=== PATIENT | female | born 1965 | race Caucasian/White ===

== ENCOUNTER 2023-10-28 12:10 | Outpatient (CLI) | payer OTHER, SELFPAY ==
--- NOTE | ~2023-10-28 | XR_ITS ---
XR lumbar spine min 4V DATE: 10/28/2023 12:46 INDICATION: Low back pain. Spinal stenosis. TECHNIQUE: Standing AP and standing flexion, extension and neutral lateral views COMPARISON: None FINDINGS: There is mild lumbar levoscoliosis. There is mild degenerative disc disease at L2-3 and L3-4. L1-2, L4-5 and L5-S1 interspaces appear relatively well preserved. There is degenerative change at the apophyseal joints with associated grade 1 anterolisthesis at L3-4 and slightly greater grade 1 anterolisthesis at L4-5, slightly improved in extension. The AP pedicle distances may be relatively short as suggested in the clinical history of spinal steno sis. However, CT lumbar spine would be more definitive for assessment of primary spinal stenosis The sacroiliac joints are intact. IMPRESSION: Degenerative changes apophyseal joints with associated grade grade 1 anterolisthesis at L 3-4 and L4-5 Moderate degenerative disc disease involving primarily L2-3, L3-4 Reviewed, dictated and finalized at location L. DESIGN ENGINEER IMPRESSION: Degenerative changes apophyseal joints with associated grade grade 1 anterolisthesis at L3-4 and L4-5 Moderate degenerative disc disease involving primarily L2-3, L3-4
== END 2023-10-28 12:11 | disposition home or self-care (01) ==
LOC: ANHIMG 12:17
PROVIDERS: PCP Emergency Medicine; Visit Provider Neurological Surgery
DX: M51.36 Other intervertebral disc degeneration, lumbar region (principal)
CPT/HCPCS: 72110

== ENCOUNTER 2023-12-29 01:34 | Day surgery (SDC) | payer OTHER, SELFPAY ==
[2023-12-24 09:54] VITALS: BMI 43.5
--- NOTE | 2023-12-24 10:00 | PC.NURSE ---
Report to the Outpatient Waiting Room, entrance under the green pavilion located off [facility], at time 6:00 on date 12/29/23. Planned Procedure Time: 7:30. Time changes happen often and if your time is changed the preop area will call you the afternoon before. - You and your visitor will be asked to self-screen and do not enter if you have any COVID symptoms. - A mask is optional within the hospital at this time. Patients may have clear liquids (water, carbonated beverages, clear teas, apple juice) until 3 hours prior to surgery (4:30) with a maximum of 20 ounces. - No food from midnight until time of surgery Take the following medications with a SIP of water the morning of surgery: ATENOLOL, UNITHROID, PREGABALIN DO NOT STOP ANY OF YOUR OTHER PRESCRIPTION MEDICATIONS PRIOR TO SURGERY ?EXCEPT THE FOLLOWING Medications to discontinue per physician: VITAMINS/SUPPLEMENTS Date to take last dose: 12/25/[address] LEON REGARDING ASPIRIN Please no make-up, nail french, hairspray, perfume, deodorant, or body powder the day of surgery. No jewelry (including any body piercings) or valuables the day of surgery, leave them at home. Please take a shower or bath the night before, or the morning of, surgery with an antibacterial soap. Wear comfortable, loose fitting clothing. - Jewelry must be removed prior to entering the operating room. Rings and piercings that are not removed may be cut off. - The hospital will not accept responsibility for valuables. - Please leave all valuables, including medications, at home the day of surgery. If you are going home after surgery, a licensed cat driver must drive you home. - NO public transportation without another adult if you receive anesthesia. - We recommend that an adult stay with you for 24 hours following discharge. - We also recommend that you do not drive, make important decision, drink alcoholic beverages, or take any drugs that were not prescribed by your health care provider for at least 24 hours after your discharge time. Follow any additional instructions given to you from your surgeon. If you or anyone in your household have experienced Covid symptoms in the past week, please notify your surgeon or the nurse liaison at the phone number below for possible testing. Telephone instructions given to PT - JAKUB MUETH and asked if any additional questions and then verbalized understanding. Patient advised to call surgeon office or pre surgery nurse liaison [phone] if any additional questions.
[2023-12-29] MEDS: LACTATED RINGERS 1,000 ML 30 ML IV CONT (06:51)
--- NOTE | 2023-12-29 06:51 | SUR.PREOP ---
Informed Dr Daly of 299 glucose.
[2023-12-29 06:52] LABS: Glucose Point of Care 299 mg/dl (65-105)
[2023-12-29 06:55] VITALS: BP 151/53; PULSE 79; RESP 16; TEMP 37; O2SAT 96
--- NOTE | 2023-12-29 07:14 | WPDANESEPPF ---
Anes - Initial Pre Proc Eval Procedure: Operation Date: 12/29/23 07:30 Proposed Procedures p L3-4, L4-5 Lumbar Laminectomy - Lyndsay Engel MD Date/Time: 12/29/23 07:14 Surgeon: Lyndsay Engel MD Pre Op Diagnosis: lumbar stenosis w/neurogenic claudication Patient Data Age: 58 Gender: F Height: 1.68 m Weight: 127.6 kg Last Vital Signs Temp 98.6 F 12/29/23 06:55 Pulse 79 12/29/23 06:55 Resp 16 12/29/23 06:55 BP 151/53 H 12/29/23 06:55 Pulse Ox 96 12/29/23 06:55 O2 Del Method Room Air 12/29/23 06:55 Allergies Allergy/AdvReac Type Severity Reaction Status Date / Time No Known Allergies Allergy Verified 12/29/23 06:15 Home Medications Medication Instructions Recorded Confirmed Type allopurinol 300 mg tablet 300 mg PO DAILY 08/21/20 12/24/23 History atenolol 50 mg tablet 50 mg PO BID 08/21/20 12/24/23 History icosapent ethyl 1 gram capsule 2 g PO BID 08/21/20 12/24/23 History (Vascepa) rosuvastatin 40 mg tablet 40 mg PO QPM 08/21/20 12/24/23 History Toujeo SoloStar U-300 Insulin 300 20 unit (0.0667 mL) subcut QPM 30 12/12/20 12/24/23 Rx unit/mL (1.5 mL) subcutaneous pen days #4.5 mL (insulin glargine U-300 conc) pen needle, diabetic 31 gauge x #400 ea 12/12/20 09/20/23 Rx 5/16 (BD Ultra-Fine Short Pen Needle) aspirin 81 mg tablet,delayed 81 mg PO DAILY 09/20/23 12/24/23 History release fenofibrate 54 mg tablet 54 mg PO DAILY 09/20/23 12/24/23 History glimepiride 2 mg tablet 2 mg PO QAM 09/20/23 12/24/23 History pregabalin 75 mg capsule 75 mg PO BID 09/20/23 12/24/23 History doxazosin 2 mg tablet 0.5 mg PO DAILY 12/09/23 12/24/23 History semaglutide 2 mg/dose (8 mg/3 mL) 2 mg subcut WEEKLY 12/09/23 12/24/23 History subcutaneous pen injector (Ozempic) escitalopram oxalate 20 mg tablet 20 mg PO HS 12/24/23 12/24/23 History ferrous sulfate 325 mg (65 mg 325 mg PO DAILY 12/24/23 12/24/23 History iron) tablet (Iron (ferrous sulfate)) levothyroxine 112 mcg tablet 112 mcg PO DAILY 12/24/23 12/24/23 History (Unithroid) Laboratory Tests 12/29/23 06:49 POC Capillary Glucose 299 H mg/dl (65-105) Patient hx anesthesia problems: none Family hx anesthesia problems: none Results Review: All pre-operative results and documents have been reviewed as part of the pre-operative evaluation. [facility] Past Medical History Medical History Anxiety Essential hypertension Heart disease Kidney disease Type 2 diabetes mellitus with hyperglycemia Family History Family History Mother Family history of cataracts Father Family history of heart disease in male family member before age 55 Social History Social History (Updated 12/09/23 @ 15:28 by Lois Fernandez) Social History: Caffeine-tea Smoking packs per day: 1.5 Smoking cigarettes per day: 30.0 Years smoked: 12 Smoking pack-years: 18.00 Smoking status: Former smoker Tobacco type: cigarettes Smoking end date: 10/25/00 Alcohol intake: current Drinks per week: 4 Alcohol use details: Socially Substance use: never Substance use type: does not use Do You Feel Safe in your Home?: Yes Lack of Transportation: No Lack of Food: Never True Current Housing: I Have Housing Concerned About Future Housing: No Difficulty Paying Gas/Electric Bills: No Difficulty Paying for Meds: No Currently Unemployed: No Education: High School Diploma/GED Difficulty w/ Childcare or Family Care: No Living arrangements: with family Spiritual care concerns: No Anes - Eval Final PreProcedure Day of Procedure 12/29/23 07:14 Patient weight: morbidly obese Heart: regular rate and rhythm Lungs: clear to auscultation Neurological: alert and oriented Last oral intake: >/= 8 hours ASA classification: III Emergent: no Anesthetic plan: proceed Anesthesia type and
[2023-12-29] MEDS: INSULIN HUMAN REGULAR (*BKC) 100 UNITS/ML 20 UNITS SUB-Q (07:25)
--- NOTE | 2023-12-29 07:34 | P.PNCROSS_ITS ---
Event Note Event Note Event Note: Ms. Elias presented for surgery this morning. Her blood sugar resulted as 299 t his morning. On review of her labs, her HbA1c that was drawn on 12/23 returned as 9.4%. She tells me that her glimipride was reduced a few months ago due to hypoglycemia. She has an appointment scheduled later this month with Endocrinology as her previous Wellness Program Coordinator is no longer practicing. Unfortunately, her blood sugar is too poorly controlled to proceed with surgery safely at this point. She is at a risk of her wound not healing and of developing a significant infection because of her poorly-controlled diabetes. I explained this to the patient and her family. She is understandably upset about having to cancel surgery. We will schedule her for follow up in clinic in the few months.
--- NOTE | 2023-12-29 07:39 | SUR.PREOP ---
Dr Engel cancelled surgery due to elevated glucose.
--- NOTE | 2023-12-29 07:53 | SUR.PREOP ---
Discussed symptoms of hypoglycemia with patient and family. Instructed to go get breakfast immediately. Understands.
== END 2023-12-29 07:58 | disposition home or self-care (01) ==
PROVIDERS: PCP Emergency Medicine; Visit Provider Neurological Surgery
PROC: (CPT 63005; principal; 2023-12-29 07:30)
DX: M48.062 Spinal stenosis, lumbar region with neurogenic claudication (principal); E11.65 Type 2 diabetes mellitus with hyperglycemia; Z53.09 Procedure and treatment not carried out because of other contraindication
CPT/HCPCS: 82948; 99213; A9270; G0463; J1170; J1815; J2250; J3010; J7120

== ENCOUNTER 2024-03-16 15:30 | Outpatient (RCR) | payer OTHER, SELFPAY | END 2024-05-01 10:36 | disposition home or self-care (01) | LOC: ANHDMC 15:30 | PROVIDERS: PCP Emergency Medicine; Visit Provider Internal Medicine | DX: E11.65 Type 2 diabetes mellitus with hyperglycemia (principal); Z71.89 Other specified counseling | CPT/HCPCS: G0108 ==

== ENCOUNTER 2024-05-03 15:21 | Outpatient (CLI) | payer OTHER, SELFPAY ==
[2024-05-03 16:09] LABS: INR 1.1; Prothrombin Time 14.3 Seconds (11.1-14.7)
[2024-05-03 16:10] LABS: Partial Thromboplastin Time 25.6 Seconds (22.3-36.8)
[2024-05-03 16:16] LABS: Add Urine Microscopic? YES; Appearance Urine Clear (Clear); Bacteria Urine None Seen /hpf; Bilirubin Urine Negative (Negative); Blood Urine Negative (Negative); Color Urine Yellow (Yellow); Glucose Urine UA Negative (Negative); Ketones Urine Negative (Negative); Leukocyte Esterase Ur 1+ LEU/UL (Negative); Need Manual Microscopic Reviewed; Nitrate Urine Negative (Negative); Non Pathogenic Casts 0-2; Protein Urine Trace mg/dL (Negative); RBC Urine 0-2 /hpf (0-2); Specific Grav Ur 1.015 (1.001-1.035); Squamous Epithelial Cell Urine None Seen /hpf (Few); WBC Urine 0-5 /hpf (0-3); pH Urine 5.5 (5.0-9.0)
== END 2024-05-03 15:22 | disposition home or self-care (01) ==
LOC: ANHSURGERY 15:24
PROVIDERS: PCP Emergency Medicine; Visit Provider Neurological Surgery
DX: M48.062 Spinal stenosis, lumbar region with neurogenic claudication (principal); Z01.818 Encounter for other preprocedural examination
CPT/HCPCS: 36415; 81001; 85610; 85730

== ENCOUNTER 2024-05-10 01:37 | Day surgery (SDC) | payer OTHER, SELFPAY ==
[2024-05-02 13:30] VITALS: BMI 43.7
--- NOTE | 2024-05-02 14:10 | PC.NURSE ---
Addendum entered by Apurva Pope RN 05/03/24 11:11: Medications to take morning of surgery: atenolol, unithroid, pregabalin. DO NOT stop any other prescription medications prior to surgery except the following: Please stop all vitamins/supplements 3 days before surgery (last dose 05/06). Please follow previous instructions to stop aspirin with last dose 05/03. Do not take any insulin the morning of surgery. Addendum entered by Ree Rivas RN 05/02/24 14:28: CORRECTION:VASCEPA AND ICOSAPENT EHTYL ARE DUPLICATE/SAME Original Note: Report to the Outpatient Waiting Room, entrance under the green pavilion located off [facility], at time _0900_am_ on date 05/10/24 . Planned Procedure Time: __1100am . Time changes happen often and if your time is changed the preop area will call you the afternoon before. - You and your visitor will be asked to self-screen and do not enter if you have any COVID symptoms. - A mask is optional within the hospital at this time. Patients may have clear liquids (water, carbonated beverages, clear teas, apple juice) until 3 hours prior to surgery with a maximum of 20 ounces. - No food from midnight until time of surgery Take the following medications with a SIP of water the morning of surgery: _ALLOPURINOL, ATENOLOL, DOXAZOSIN, ESCITALOPAM, FENOFIBRATE, VASCEPA, LEVOTHYROXINE, PREGABALIN, ICOSAPENT ETHYL DO NOT STOP ANY OF YOUR OTHER PRESCRIPTION MEDICATIONS PRIOR TO SURGERY ?EXCEPT THE FOLLOWING Medications to discontinue per physician ASPIRIN Date to take last dose____05/03/24 DO NOT TAKE ANY INSULIN THE MORNING OF SURGERY Please no make-up, nail moldovan, hairspray, perfume, deodorant, or body powder the day of surgery. No jewelry (including any body piercings) or valuables the day of surgery, leave them at home. Please take a shower or bath the night before, or the morning of, surgery with an antibacterial soap. Wear comfortable, loose fitting clothing. - Jewelry must be removed prior to entering the operating room. Rings and piercings that are not removed may be cut off. - The hospital will not accept responsibility for valuables. - Please leave all valuables, including medications, at home the day of surgery. If you are going home after surgery, a licensed delivery motorcycle driver must drive you home. - NO public transportation without another adult if you receive anesthesia. - We recommend that an adult stay with you for 24 hours following discharge. - We also recommend that you do not drive, make important decision, drink alcoholic beverages, or take any drugs that were not prescribed by your health care provider for at least 24 hours after your discharge time. Follow any additional instructions given to you from your surgeon. If you or anyone in your household have experienced Covid symptoms in the past week, please notify your surgeon or the nurse liaison at the phone number below for possible testing. Telephone instructions given to ___Bethany and asked if any additional questions and then verbalized understanding. Patient advised to call surgeon office or pre surgery nurse liaison [phone] if any additional questions.
[2024-05-10] VITALS (14 sets, daily range): BP systolic 139–172; BP diastolic 56–83; PULSE 77–86; RESP 12–22; TEMP 36–36.6; O2SAT 94–100
--- NOTE | ~2024-05-10 | XR_ITS ---
XR fluoroscopy no charge Indication: L3-4, L4-5 lumbar laminectomy TECHNIQUE: Fluoroscopy used during L3-4, L4-5 lumbar laminectomy performed by [Lyndsay Engel MD] on 05/10/2024. 7 seconds of fluoroscopy with 1 fluoroscopic images captured. FINDINGS: Correlate with procedure note. IMPRESSION: Fluoroscopy used during L3-4, L4-5 lumbar laminectomy. Reviewed, dictated and finalized at location B.
--- NOTE | 2024-05-10 09:35 | WPDHPUPDATE1 ---
History and Physical Update Update Date/Time: 05/10/24 09:35 History and Physical has been reviewed, including an updated exam of the patient. There are NO changes in the patient's condition. Risks, benefits, and alternatives have been discussed and questions answered. Patient agrees to proceed with procedure.
--- NOTE | 2024-05-10 09:35 | PM.IMHP ---
H&P: HPI History of Present Illness Date/Time: 05/10/24 09:35 Chief Complaint: neurogenic claudication Narrative: Ms. Elias is a 59-year-old female with history of diabetes, hypertension, CKD, and previous DVT/ PE who presents for follow-up of back and leg pain. She was scheduled for surgery in December; however, her A1c immediately prior to surgery came back at 9.4%, so we had to cancel surgery in order to ensure better blood sugar control. She returns today to see if we can schedule surgery. She was placed on insulin to assist with glucose control. She continues to have claudicatory pain in the back radiating down the backs the legs to the knees with standing and walking. She has been working from home in order to avoid having to walk long distances at work. She has had physical therapy as well as multiple epidural steroid injections through [facility] without improvement. 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 She was placed on Eliquis at that time but is no longer taking the medication. She does take a baby aspirin daily. Review of Systems Review of Systems: All systems reviewed & are unremarkable except as noted in HPI and below PMFSH Past Medical History Medical History Anxiety Essential hypertension Heart disease Kidney disease Type 2 diabetes mellitus with hyperglycemia Family History Family History Mother Family history of cataracts Father Family history of heart disease in male family member before age 55 Social History Social History Social History: Caffeine-tea Smoking packs per day: 1.5 Smoking cigarettes per day: 30.0 Years smoked: 15 Smoking pack-years: 22.50 Smoking status: Former smoker Tobacco type: cigarettes Smoking end date: 10/25/00 Alcohol intake: current Drinks per week: 4 Alcohol use details: Socially Substance use: never Substance use type: does not use Do You Feel Safe in your Home?: Yes Lack of Transportation: No Lack of Food: Never True Current Housing: I Have Housing Concerned About Future Housing: No Difficulty Paying Gas/Electric Bills: No Difficulty Paying for Meds: No Currently Unemployed: No Education: High School Diploma/GED Difficulty w/ Childcare or Family Care: No Living arrangements: with family Spiritual care concerns: No Meds Home Medications and Allergies Home Medications Medication Instructions Recorded Confirmed Type allopurinol 300 mg tablet 300 mg PO DAILY 08/21/20 05/02/24 History atenolol 50 mg tablet 50 mg PO BID 08/21/20 05/10/24 History icosapent ethyl 1 gram capsule 2 g PO DAILY 08/21/20 05/02/24 History (Vascepa) rosuvastatin 40 mg tablet 40 mg PO QPM 08/21/20 05/02/24 History pen needle, diabetic 31 gauge x #400 ea 12/12/20 05/02/24 Rx 5/16 (BD Ultra-Fine Short Pen Needle) aspirin 81 mg tablet,delayed 81 mg PO DAILY 09/20/23 05/10/24 History release fenofibrate 54 mg tablet 54 mg PO DAILY 09/20/23 05/02/24 History pregabalin 75 mg capsule 75 mg PO BID 09/20/23 05/02/24 History doxazosin 2 mg tablet 0.5 mg PO DAILY 12/09/23 05/10/24 History escitalopram oxalate 20 mg tablet 20 mg PO HS 12/24/23 05/02/24 History levothyroxine 112 mcg tablet 112 mcg PO DAILY 12/24/23 05/02/24 History (Unithroid) glucose 4 gram chewable tablet 4 g PO Q15M PRN hypoglycemia #360 01/05/24 05/02/24 Rx tabs insulin glargine U-300 conc 300 20 unit subcut BID 01/05/24 05/02/24 History unit/mL (1.5 mL) subcutaneous pen (Toujeo SoloStar U-300 Insulin) insulin lispro 100 unit/mL 10 unit (0.1 mL) subcut .before 02/29/24 05/02/24 Rx subcutaneous pen (Humalog KwikPen meals #45 mL (U-100) Insulin) glucagon 3 mg/actuation nasal 3 mg
[2024-05-10] MEDS: LACTATED RINGERS 1,000 ML 30 ML IV CONT ×2 (09:41→12:26)
[2024-05-10 09:49] LABS: Glucose Point of Care 202 mg/dl (65-105)
--- NOTE | 2024-05-10 09:51 | WPDANESEPPF ---
Anes - Initial Pre Proc Eval Procedure: Operation Date: 05/10/24 11:00 Proposed Procedures p L3-4, L4-5 Lumbar Laminectomy - Lynsday Engel MD Date/Time: 05/10/24 09:51 Surgeon: Lyndsay Engel MD Pre Op Diagnosis: lumbar stenosis w/neuro claudication Patient Data Age: 59 Gender: F Height: 1.68 m Weight: 120.2 kg Last Vital Signs Temp 97.5 F L 05/10/24 09:16 Pulse 80 05/10/24 09:16 Resp 18 05/10/24 09:16 BP 154/70 H 05/10/24 09:16 Pulse Ox 99 05/10/24 09:16 O2 Del Method Room Air 05/10/24 09:16 Allergies Allergy/AdvReac Type Severity Reaction Status Date / Time No Known Allergies Allergy Verified 03/30/24 15:27 Home Medications Medication Instructions Recorded Confirmed Type allopurinol 300 mg tablet 300 mg PO DAILY 08/21/20 05/02/24 History atenolol 50 mg tablet 50 mg PO BID 08/21/20 05/10/24 History icosapent ethyl 1 gram capsule 2 g PO DAILY 08/21/20 05/02/24 History (Vascepa) rosuvastatin 40 mg tablet 40 mg PO QPM 08/21/20 05/02/24 History pen needle, diabetic 31 gauge x #400 ea 12/12/20 05/02/24 Rx 5/16 (BD Ultra-Fine Short Pen Needle) aspirin 81 mg tablet,delayed 81 mg PO DAILY 09/20/23 05/10/24 History release fenofibrate 54 mg tablet 54 mg PO DAILY 09/20/23 05/02/24 History pregabalin 75 mg capsule 75 mg PO BID 09/20/23 05/02/24 History doxazosin 2 mg tablet 0.5 mg PO DAILY 12/09/23 05/10/24 History escitalopram oxalate 20 mg tablet 20 mg PO HS 12/24/23 05/02/24 History levothyroxine 112 mcg tablet 112 mcg PO DAILY 12/24/23 05/02/24 History (Unithroid) glucose 4 gram chewable tablet 4 g PO Q15M PRN hypoglycemia #360 01/05/24 05/02/24 Rx tabs insulin glargine U-300 conc 300 20 unit subcut BID 01/05/24 05/02/24 History unit/mL (1.5 mL) subcutaneous pen (Toujeo SoloStar U-300 Insulin) insulin lispro 100 unit/mL 10 unit (0.1 mL) subcut .before 02/29/24 05/02/24 Rx subcutaneous pen (Humalog KwikPen meals #45 mL (U-100) Insulin) glucagon 3 mg/actuation nasal 3 mg intranasal ONCE #1 ea 03/07/24 05/02/24 Rx spray (Baqsimi) lisinopril 2.5 mg tablet 2.5 mg PO DAILY #90 tabs 04/19/24 05/02/24 Rx semaglutide 2 mg/dose (8 mg/3 mL) 2 mg (0.75 mL) subcut WEEKLY #9 mL 04/19/24 05/02/24 Rx subcutaneous pen injector (Ozempic) blood-glucose sensor (FreeStyle #6 ea 05/04/24 Rx Renetta 3 Sensor device) Laboratory Tests 05/10/24 09:43 POC Capillary Glucose 202 H mg/dl (65-105) Patient hx anesthesia problems: none Family hx anesthesia problems: none Results Review: All pre-operative results and documents have been reviewed as part of the pre-operative evaluation. [facility] Past Medical History Medical History Anxiety Essential hypertension Heart disease Kidney disease Type 2 diabetes mellitus with hyperglycemia Family History Family History Mother Family history of cataracts Father Family history of heart disease in male family member before age 55 Social History Social History Social History: Caffeine-tea Smoking packs per day: 1.5 Smoking cigarettes per day: 30.0 Years smoked: 15 Smoking pack-years: 22.50 Smoking status: Former smoker Tobacco type: cigarettes Smoking end date: 10/25/00 Alcohol intake: current Drinks per week: 4 Alcohol use details: Socially Substance use: never Substance use type: does not use Do You Feel Safe in your Home?: Yes Lack of Transportation: No Lack of Food: Never True Current Housing: I Have Housing Concerned About Future Housing: No Difficulty Paying Gas/Electric Bills: No Difficulty Paying for Meds: No Currently Unemployed: No Education: High School Diploma/GED Difficulty w/ Childcare or Family Care: No Living arrangements: with family Spiritual
[2024-05-10] MEDS: ceFAZolin 3 GM/D5W 100 ML 100 ML IVPB (09:55)
[2024-05-10] MEDS: BUPIVACAINE/EPINEPHRINE 0.5% 50 ML VIAL 30 ML INFILTRATE (10:26)
--- NOTE | 2024-05-10 12:17 | PM.OP ---
Procedure Note - Brief Procedure Note - Brief Date of procedure: 05/10/24 lumbar stenosis w/neuro claudication Post-op diagnosis: Same Procedure performed: L3-4, L4-5 laminectomies Surgeon: Lyndsay Engel MD Sweet Pickle Maker: Mak Anesthesia: GETA Findings: Uncomplicated laminectomies Estimated blood loss (mL): 100 Drains: Yes Packing: No Pathology: None sent Complications: No immediate complications Condition: Stable Disposition: PACU
[2024-05-10 12:37] LABS: Glucose Point of Care 246 mg/dl (65-105)
--- NOTE | 2024-05-10 12:41 | W.PM.PROC2 ---
Procedure Note - Detailed Date of Procedure 05/10/24 Pre-op Diagnosis lumbar stenosis w/neuro claudication Post-op Diagnosis Same Procedure Performed 1. L3-4, L4-5 lumbar laminectomies 2. Use of microscope 3. Use of C-arm Surgeon Lyndsay Engel MD Major Case Detective Mak Anesthesia General Description of Procedure The patient was brought to the operating room, and general anesthesia was induced. The patient was placed prone on the open Erasto table, and all pressure points were padded. Compression devices were placed on the patient's calves. The C-arm was brought onto the field to localize the appropriate disc space and assist with incisional planning. The area was prepped and draped in usual sterile fashion. A time out was conducted, and pre-operative antibiotics were administered. Local anesthesia was injected into the planned incision. A midline skin incision was made with a 10-blade scalpel, and dissection was carried down with the monopolar cautery to open the fascia. Once the spinous processes were located, a subperiosteal dissection was performed to expose the laminae bilaterally. A self-retaining retractor was placed. The C-arm was brought in to confirm the correct level. A Leksell rongeur was used to remove the spinous processes and posterior elements. The microscope was draped and brought into the field for microsurgical dissection. The high-speed drill was used to thin the laminae to the ligamentum flavum. A curved currette was used to separate the ligament from the bone. Kerrison rongeurs were then used to remove remaining laminae and ligamentum flavum. Medial facetectomies and foraminotomies were performed at L3-4, and L4-5 with the kerrison as well. The dura appeared well decompressed. Hemostasis was ensured, and the area was copiously irrigated. No evidence of CSF leak was noted. A hemovac drain was placed and tunneled inferiorly. The muscle was loosely approximated with 0-Vicryl. The fascia was closed with 0-Vicryl in an interrupted fashion. The soft tissue was again copiously irrigated. The dermis was closed with 2-0 and 3-0 interrupted Vicryl. The skin was closed with 4-0 subcuticular monocryl. The drain was secured with a 3-0 nylon. Dermabond and sterile dressings were applied. The patient was returned supine on the stretcher, extubated, and transferred to PACU without incident. Surgical codes: 19298, 80104, 65339 Estimated Blood Loss 1,000 Drains Yes Packing No Pathology None sent Complications None Condition Stable Disposition PACU [facility] Billing Surgery - Charge Forward: Surgery Billing
[2024-05-10] MEDS: INSULIN HUMAN REGULAR (*BKC) 100 UNITS/ML SUB-Q (12:45)
[2024-05-10] MEDS: fentaNYL CITRATE INJ (*CRX) 100 MCG/2 ML VIAL 25 MCG IV PUSH ×2 (13:12→13:30)
--- NOTE | 2024-05-10 13:45 | ADMGEN ---
This patient, Bethany Elias, was admitted to 2 Medical Room 259-. Patient/family oriented to hospital policies and general routines including ID bracelet, bed and alarms, visiting hours, pain management, procedures, bathroom and other care routines, personal items, smoking policy, room service/diet, and visiting hours. Information on how to activate the Rapid Response Team has been discussed. Patient/Family are encouraged to report perceived risks to care and to ask questions if they do not understand what they are told or what they should do.
[2024-05-10 17:25] LABS: Glucose Point of Care 149 mg/dl (65-105)
[2024-05-10] MEDS: PREGABALIN (*CRX) 75 MG CAPSULE PO (18:15)
[2024-05-10] MEDS: oxyCODONE HCL (*CRX) 5 MG TAB IR 10 MG PO (18:15)
[2024-05-10] MEDS: atenoloL 50 MG TABLET PO (18:15)
[2024-05-10] MEDS: ROSUVASTATIN 20 MG TABLET 40 MG PO (18:15)
[2024-05-10] MEDS: ACETAMINOPHEN 500 MG TABLET 1000 MG PO (18:15)
[2024-05-10] MEDS: ceFAZolin 2 GM/D5W 50 ML 2 GM/50 ML BAG IVPB (18:16)
[2024-05-10] MEDS: INSULIN GLARGINE (*BKC) 100 UNITS/ML SUB-Q (18:23)
[2024-05-10] MEDS: INSULIN ASPART (*BKC) 100 UNITS/ML 10 UNITS SUB-Q (18:23)
[2024-05-10] MEDS: DOCUSATE SODIUM 100 MG CAPSULE PO (20:33)
[2024-05-10] MEDS: ESCITALOPRAM OXALATE 10 MG TABLET 20 MG PO (20:33)
[2024-05-11] MEDS: oxyCODONE HCL (*CRX) 5 MG TAB IR 10 MG PO ×4 (00:04→13:26)
[2024-05-11 01:23] VITALS: BP 140/52; PULSE 86; RESP 16; TEMP 36.3; O2SAT 94
[2024-05-11] MEDS: ceFAZolin 2 GM/D5W 50 ML 2 GM/50 ML BAG IVPB ×2 (01:43→10:11)
[2024-05-11 05:35] VITALS: BP 126/59; PULSE 81; RESP 16; TEMP 36.9; O2SAT 95
[2024-05-11] MEDS: LEVOTHYROXINE SODIUM 112 MCG TABLET PO (06:01)
[2024-05-11] MEDS: ACETAMINOPHEN 500 MG TABLET 1000 MG PO ×3 (06:01→13:26)
[2024-05-11 06:38] LABS: Glucose Point of Care 156 mg/dl (65-105)
[2024-05-11 07:56] LABS: Glucose Point of Care 113 mg/dl (65-105)
[2024-05-11] MEDS: DOCUSATE SODIUM 100 MG CAPSULE PO (08:32)
[2024-05-11] MEDS: lisinopriL 2.5 MG TABLET PO (08:32)
[2024-05-11] MEDS: PREGABALIN (*CRX) 75 MG CAPSULE PO (08:32)
[2024-05-11 08:33] VITALS: PULSE 81
[2024-05-11] MEDS: atenoloL 50 MG TABLET PO (08:33)
[2024-05-11] MEDS: allopurinoL 300 MG TABLET PO (08:33)
[2024-05-11] MEDS: INSULIN ASPART (*BKC) 100 UNITS/ML 15 UNITS SUB-Q (08:34)
[2024-05-11] MEDS: INSULIN GLARGINE (*BKC) 100 UNITS/ML 22 UNITS SUB-Q (08:35)
[2024-05-11 10:15] VITALS: BP 119/53; PULSE 83; RESP 16; TEMP 36.9; O2SAT 91
--- NOTE | 2024-05-11 11:46 | PCPTNOTE ---
On 05/11/24, the student, [Chasity Stephen], provided care and completed [facility] documentation on this patient. I have reviewed the student's documentation and agree with the findings.
[2024-05-11 11:55] LABS: Glucose Point of Care 111 mg/dl (65-105)
--- NOTE | 2024-05-11 13:07 | WPDNEUROSGPN ---
Progress Note: A&P Assessment and Plan (1) Status post lumbar laminectomy: Code(s): Z98.890 - Other specified postprocedural states Status: Acute Plan -Discharge home today -Remove hemovac drain -Wound care and activity precautions reviewed Subjective Date/time seen: 05/11/24 13:07 Interval history: Doing well with incisional soreness which is controlled with medication. She did not get the burning pain in her legs with walking in the halls. Tolerating PO and voiding independently. Would like to go home today. Review of Systems Review of Systems: All systems reviewed & are unremarkable except as noted in HPI and below Exam Narrative: AOx4 Full strength in lower extremities Sensation intact to light touch Incision c/d/i Objective Data Vital Signs Vital Signs: Vital Signs - 24 hr 05/10/24 13:15 05/10/24 13:28 05/10/24 14:15 Temperature 97.4 F L Pulse Rate 82 85 78 Respiratory Rate 12 12 13 Blood Pressure 139/71 142/56 H 154/69 H Pulse Oximetry 94 96 94 Oxygen Delivery Room Air Room Air 05/10/24 14:30 05/10/24 15:00 05/10/24 16:00 Temperature 97.5 F L 97.6 F 96.8 F L Pulse Rate 79 81 84 Respiratory Rate 15 16 22 H Blood Pressure 152/68 H 150/63 H 141/56 H Pulse Oximetry 97 94 95 Oxygen Delivery 05/10/24 13:45 05/10/24 18:15 05/10/24 20:00 Temperature 97.1 F L Pulse Rate 84 86 Respiratory Rate 16 Blood Pressure 146/70 H Pulse Oximetry 98 95 Oxygen Delivery Room Air 05/11/24 01:23 05/11/24 05:35 05/11/24 07:51 Temperature 97.3 F L 98.5 F Pulse Rate 86 81 Respiratory Rate 16 16 Blood Pressure 140/52 L 126/59 L Pulse Oximetry 94 95 Oxygen Delivery Room Air 05/11/24 08:33 05/11/24 08:30 05/11/24 10:15 Temperature 98.5 F Pulse Rate 81 83 Respiratory Rate 16 Blood Pressure 119/53 L Pulse Oximetry 91 Oxygen Delivery Room Air Intake/Output Intake/Output: Intake & Output 07/15/24 07/16/24 07/17/24 07/18/24 23:59 23:59 23:59 23:59 Intake Total 1440 790 Output Total 1465 800 Balance -25 -10 Meds/Results Medications: Active Medications Generic Name Dose Route Start Last Admin Trade Name Myles PRN Reason Stop Dose Admin Acetaminophen 1,000 mg 05/10/24 12:35 05/11/24 06:01 Acetaminophen 500 Mg Tablet PO 1,000 mg Q6H RADHA Administration Al Hydrox/Mg Hydrox/Simethicone 20 ml 05/10/24 12:35 Mag Hydrox/Al Hydrox/Simeth 30 Ml Udc PO Q4H PRN Indigestion/Heartburn Allopurinol 300 mg 05/11/24 09:00 05/11/24 08:33 Allopurinol 300 Mg Tablet PO 300 mg DAILY RADHA Administration Atenolol 50 mg 05/10/24 17:00 05/11/24 08:33 Atenolol 50 Mg Tablet PO 50 mg BID RADHA Administration Bisacodyl 10 mg 05/10/24 12:35 Bisacodyl 10 Mg Suppository RECTAL DAILY PRN Constipation Cyclobenzaprine HCl 10 mg 05/10/24 12:35 Cyclobenzaprine Hcl 10 Mg Tablet PO TID PRN Muscle Spasms Docusate Sodium 100 mg 05/10/24 21:00 05/11/24 08:32 Docusate Sodium 100 Mg Capsule PO 100 mg Q12HR RADHA Administration Doxazosin Mesylate 0.5 mg 05/11/24 09:00 05/11/24 08:32 Doxazosin Mesylate 0.5 Mg Tablet PO 0.5 mg DAILY RADHA Administration Escitalopram Oxalate 20 mg 05/10/24 21:00 05/10/24 20:33 Escitalopram Oxalate 10 Mg Tablet PO 20 mg HS [facility] Administration Cefazolin Sodium 2 gm in 50 mls @ 100 mls/hr 05/10/24 18:00 05/11/24 10:11 Ancef 2 Gm/D5w 50 Ml IVPB 100 mls/hr Q8H [facility] Administration Insulin Aspart 10 units 05/10/24 17:00 05/10/24 18:23 Insulin Aspart (*Bkc) 100 Units/Ml SUB-Q 10 units DAILY@1200,1700 RADHA Administration Insulin Aspart 15 units 05/11/24 08:00 05/11/24 08:34 Insulin Aspart (*Bkc) 100 Units/Ml SUB-Q 15 units DAILY@0800 RADHA Administration Insulin Glargine 22 units 05/11/24 09:00 05/11/24 08:35 Insulin Glargine (*Bkc) 100 Units/Ml SUB-Q 22 units QAM RADHA Administration Insulin G
== END 2024-05-11 14:26 | disposition home or self-care (01) ==
LOC: ANHSURGERY 08:55 → ANH2MED 13:40
PROVIDERS: PCP Emergency Medicine; Visit Provider Neurological Surgery
PROC: (CPT 63005; principal; 2024-05-10 11:00)
DX: M48.062 Spinal stenosis, lumbar region with neurogenic claudication (principal); N18.9 Chronic kidney disease, unspecified; I12.9 Hypertensive chronic kidney disease with stage 1 through stage 4 chronic kidney disease, or unspecified chronic kidney disease; E11.22 Type 2 diabetes mellitus with diabetic chronic kidney disease; Z79.4 Long term (current) use of insulin; Z87.891 Personal history of nicotine dependence; Z86.718 Personal history of other venous thrombosis and embolism
CPT/HCPCS: 63047; 63048; 36415; 80307; 81001; 82948; 85610; 85730; 87641; 97161; 97165; 99199; A9270; J0330; J0690; J1170; J1200; J1815; J2250; J2371; J2405; J2704; J3010; J7120